=== PATIENT | female | born 1960 | race Caucasian/White ===

== ENCOUNTER → 2023-07-07 06:47 | Outpatient (REF) | payer BC, SELFPAY | LOC: WDC 06:47 | PROVIDERS: ATTENDING PHYSICIAN Nurse Practitioner | DX: Z12.31 Encounter for screening mammogram for malignant neoplasm of breast (principal) | CPT/HCPCS: 77063; 77067 ==

== ENCOUNTER → 2023-10-29 16:40 | Outpatient (REF) | payer BC, SELFPAY | LOC: RAD 16:40 | PROVIDERS: ATTENDING PHYSICIAN Nurse Practitioner; FAMILY PHYSICIAN Internal Medicine | DX: R20.0 Anesthesia of skin (principal) | CPT/HCPCS: 72110; 73502 ==

== ENCOUNTER → 2024-04-06 09:03 | Outpatient (REF) | payer BC, SELFPAY | LOC: PAVMRI 09:03 | PROVIDERS: ATTENDING PHYSICIAN Surgery; FAMILY PHYSICIAN Internal Medicine | DX: N28.1 Cyst of kidney, acquired (principal) | CPT/HCPCS: 74183; A9575 ==

== ENCOUNTER → 2024-07-08 07:01 | Outpatient (REF) | payer BC, SELFPAY | LOC: WDC 07:01 | PROVIDERS: ATTENDING PHYSICIAN Nurse Practitioner | DX: Z12.31 Encounter for screening mammogram for malignant neoplasm of breast (principal) | CPT/HCPCS: 77063; 77067 ==

== ENCOUNTER → 2024-08-25 14:03 | Outpatient (REF) | payer BC, SELFPAY ==
[2024-08-25 15:11] LABS: Hematocrit 40.8 % (37.0-47.0); Hemoglobin 13.9 g/dL (12.0-16.0); Mean Corp Hgb Conc. 34.1 g/dL (33.0-37.0); Mean Corpuscular Volume 87.2 fL (81.0-99.0); Nucleated Red Blood Cells % 0 %; Platelet Count 233 10^3/uL (130-400); Red Cell Dist. Width 12.5 % (11.5-14.5)
[2024-08-25 15:56] LABS: Blood Urea Nitrogen 14 mg/dl (7-17); Calcium 9.9 mg/dl (8.4-10.2); Carbon Dioxide 24 mmol/L (22-30); Chloride 105 mmol/L (98-107); Glucose 99 mg/dl (70-99); Potassium 4.5 mmol/L (3.5-5.1); Sodium 139 mmol/L (135-145); eGFR > 60.00
== END ==
LOC: RCS 14:03
PROVIDERS: ATTENDING PHYSICIAN Orthopaedic Surgery; FAMILY PHYSICIAN Internal Medicine
DX: Z01.818 Encounter for other preprocedural examination (principal)
CPT/HCPCS: 36415; 80048; 85025; 93005

== ENCOUNTER → 2024-12-28 07:56 | Outpatient (REF) | payer BC, SELFPAY | LOC: PAVMRI 07:56 | PROVIDERS: ATTENDING PHYSICIAN Physician Assistant; FAMILY PHYSICIAN Internal Medicine | DX: M54.16 Radiculopathy, lumbar region (principal) | CPT/HCPCS: 72148 ==

== ENCOUNTER → 2024-12-29 06:41 | Outpatient (REF) | payer BC, SELFPAY | LOC: RAD 06:41 | PROVIDERS: ATTENDING PHYSICIAN Nurse Practitioner | DX: E04.1 Nontoxic single thyroid nodule (principal) | CPT/HCPCS: 76536 ==

== ENCOUNTER → 2025-01-27 07:27 | Outpatient (REF) | payer BC, SELFPAY | LOC: MRI 3T 07:27 | PROVIDERS: ATTENDING PHYSICIAN Surgery; FAMILY PHYSICIAN Internal Medicine | DX: N28.1 Cyst of kidney, acquired (principal) | CPT/HCPCS: 74183; A9575 ==